=== PATIENT | female | born 1965 | race American Indian/Alaskan Native ===

== ENCOUNTER 2018-04-23 08:03 | Outpatient (CLI) | payer OTHER ==
--- NOTE | 2018-04-23 12:32 | Nuclear Medicine Report ---
NUCLEAR MEDICINE HEPATOBILIARY SCAN: 04/23/18 08:14:00 CLINICAL: Right upper quadrant abdominal pain, nausea and vomiting for 6+ months. TECHNIQUE: 5.0mCi technetium 99m Choletec was injected intravenously. Serial images were obtained up to 2 hours. FINDINGS: Normal activity in the liver, bile ducts and small bowel but no gallbladder activity identified at 2 hours. IMPRESSION: Nonvisualization of the gallbladder at 2 hours is consistent with acute cholecystitis.
== END 2018-04-23 08:04 | disposition home or self-care (01) ==
LOC: NM 08:03
PROVIDERS: ATTEND Student in an Organized Health Care Education/Training Program
DX: K57.30 Diverticulosis of large intestine without perforation or abscess without bleeding (principal); K57.32 Diverticulitis of large intestine without perforation or abscess without bleeding; R11.2 Nausea with vomiting, unspecified; R50.9 Fever, unspecified
CPT/HCPCS: 78226; A9537

== ENCOUNTER 2018-04-24 18:04 | Inpatient (IN) | payer OTHER ==
--- NOTE | 2018-04-24 18:29 | Emergency Department Report ---
Blank Doc - Documentation Documentation: 52 y o female presents with gall bladder disease, was sent here by [facility] or admit to surgery for gb removal. HIDA scan yesterday Gen Surg: Dr Valenzuela sent by Dr Oziel Christina reports abd pain, n, eat once a day This initial assessment diagnostic orders/clinical plan/treatment (s) is/Are subject change based on patient's health status, clinical progression and re- assessment by fellow clinical providers in the ED. Further treatment and work-up at subsequent clinical providers discretion. Patient/guardians urged not to elope from their condition may be serious if not clinically assessed and managed. Initial order include: cbc, cmp
--- NOTE | 2018-04-24 19:01 | Emergency Department Report ---
ED Abdominal Pain HPI - General Chief Complaint: Abdominal Pain Stated Complaint: GALL BLADDER Time Seen by Provider: 04/24/18 18:24 Source: patient Mode of arrival: Ambulatory Limitations: No Limitations - History of Present Illness Initial Comments: She is a 52-year-old female that presents to the emergency room for abdominal pain, nausea vomiting, and fever. Patient states that her abdominal pain is originally in her right upper quadrant with sweats she had a HIDA scan for trauma HIDA scan shows a nonfunctioning gallbladder. Patient is also com plaining of left lower quadrant pain. Patient states the pain is 10 out of 10. Patient states the pain is better with rest and worse with eating or movement. Patient states she been nauseated for 3 days. Patient states her fever has been gone for 3 days and patient has been taking Tylenol to relieve the pain in the fever and pain. Patient states she was sent here by her primary care for [facility] for admission and gallbladder removal. MD Complaint: abdominal pain -: Sudden Location: RUQ, LLQ Radiation: none Migration to: no migration Severity: severe Severity scale (0 -10): 10 Quality: stabbing Consistency: constant Improves With: rest Worsens With: eating, movement Associated Symptoms: nausea, vomiting, fever. denies: chills, constipation, dysuria, hematemesis, hematochezia, melena, hematuria, anorexia, syncope - Related Data Home Medications Medication Instructions Recorded Confirmed Last Taken Levothyroxine [Synthroid] 112 mcg PO QAM 04/24/18 04/24/18 Unknown NIFEdipine [Nifedipine ER] 60 mg PO DAILY 04/24/18 04/24/18 Unknown Allergies Allergy/AdvReac Type Severity Reaction Status Date / Time iodine Allergy Swelling Verified 04/25/18 00:31 latex Allergy Swelling Verified 04/25/18 00:31 Penicillins Allergy Hives Verified 04/25/18 00:32 venom-honey bee Allergy Swelling Unverified 08/03/15 13:16 [bee venom (honey bee)] ED Review of Systems ROS: Stated complaint: GALL BLADDER Other details as noted in HPI Constitutional: fever. denies: chills Eyes: denies: eye pain, eye discharge, vision change ENT: denies: ear pain, throat pain Respiratory: denies: cough, shortness of breath, wheezing Cardiovascular: denies: chest pain, palpitations Endocrine: no symptoms reported Gastrointestinal: abdominal pain, nausea, vomiting. denies: diarrhea Genitourinary: denies: urgency, dysuria, discharge Musculoskeletal: denies: back pain, joint swelling, arthralgia Skin: denies: rash, lesions Neurological: denies: headache, weakness, paresthesias Psychiatric: denies: anxiety, depression Hematological/Lymphatic: denies: easy bleeding, easy bruising ED Past Medical Hx - Past Medical History Previous Medical History?: Yes Hx Hypertension: Yes Additional medical history: thyroid - Surgical History Past Surgical History?: Yes Additional Surgical History: hysterectomy, tub removal, thyriod surgery - Family History Family history: no significant - Social History Smoking Status: Never Smoker Substance Use Type: None - Medications Home Medications: Home Medications Medication Instructions Recorded Confirmed Last Taken Type Levothyroxine [Synthroid] 112 mcg PO QAM 04/24/18 04/24/18 Unknown History NIFEdipine [Nifedipine ER] 60 mg PO DAILY 04/24/18 04/24/18 Unknown History ED Physical Exam - General Limitations: No Limitations General appearance: alert, in no apparent distress - Head Head exam: Present: atraumatic, normocephalic - Eye Eye exam: Present: normal appearance - ENT ENT exam: Present: mucous membranes moist - Neck Neck exam: Present: normal inspection - Respiratory Respiratory exam: Present: normal lung sounds bilaterally. Absent: respiratory distress - Cardiovascular Cardiovascular Exam: Present: regular rate, normal rhythm. Absent: systolic murmur, diastolic murmur, rubs, gallop - GI/Abdominal GI/Abdominal exam: Present: soft, tenderness (right upper quadrant tenderness and left lower quadrant tenderness), normal bowel sounds. Absent: guarding, rebound - Rectal Rectal exam: Present: deferred - Extremities Exam Extremities exam: Present: normal inspection - Back Exam Back exam: Present: normal inspection - Neurological Exam Neurological exam: Present: alert, oriented X3 - Psychiatric Psychiatric exam: Present: normal affect, normal mood - Skin Skin exam: Present: warm, dry, intact, normal color. Absent: rash ED Course Vital Signs 04/24/18 04/24/18 04/24/18 14:41 14:46 15:00 Temperature Pulse Rate Respiratory Rate Blood Pressure 124/84 124/84 124/84 Blood Pressure [Right] O2 Sat by Pulse 95 96 91 Oximetry 04/24/18 04/24/18 04/24/18 15:16 18:29 18:42 Temperature 97.6 F Pulse Rate 92 H Respiratory 18 Rate Blood Pressure 130/82 154/110 130/82 Blood Pressure [Right] O2 Sat by Pulse 94 98 100 Oximetry 04/24/18 04/24/18 04/24/18 18:45 18:54 19:00 Temperature 98.9 F Pulse Rate 87 98 H 84 Respiratory 12 14 22 Rate Blood Pressure 150/102 151/106 Blood Pressure 111/67 [Right] O2 Sat by Pulse 100 100 100 Oximetry 04/24/18 04/24/18 04/24/18 19:22 20:00 21:00 Temperature 98.2 F Pulse Rate 80 75 84 Respiratory 15 14 15 Rate Blood Pressure 140/101 138/89 Blood Pressure 130/96 [Right] O2 Sat by Pulse 98 98 99 Oximetry 04/24/18 04/25/18 22:00 00:05 Temperature Pulse Rate 80 87 Respiratory 14 19 Rate Blood Pressure 149/97 Blood Pressure 149/87 [Right] O2 Sat by Pulse 99 99 Oximetry - Reevaluation(s) Reevaluation #1: Patient states she doesn't want anything for pain and would just like something for nausea. She is allergic to IV dye 04/24/18 18:24 Discussed all results with patient. Patient agrees to plan of care and admission. Patient was admitted to the hospitalist service for further treatment. 04/24/18 22:25 - Consultations Consultation #1: General surgery consulted. Dr. Sierra wants patient admitted to internal medicine service, nothing by mouth, and ultrasound done as well as patient given Levaquin IV. 04/24/18 22:24 Consultation #2: Hospitalist consulted for admission. Hospitalist to assume care of the patient and admit patient 04/24/18 22:31 ED Medical Decision Making - Lab Data Result diagrams: 04/24/18 18:52 04/24/18 18:52 - Radiology Data Radiology results: report reviewed PROCEDURE: CT ABDOMEN PELVIS WO CON TECHNIQUE: Computerized axial tomography of the abdomen and pelvis was performed without intravenous contrast. This study is performed without intravascular contrast material and its sensitivity for abdominal and pelvic pathology, including neoplasms, inflammation, abscess, free fluid, thrombosis, arterial dissection and infarction, is reduced compared with a contrast enhanced study. CT DOSE LENGTH PRODUCT: mGycm HISTORY: abd pain COMPARISONS: None . FINDINGS: Liver, spleen, pancreas and adrenal glands are within normal limits. Bilateral kidneys demonstrate normal density without calculi or hydronephrosis. Urinary bladder is partially filled with normal outlines. Aorta is of normal caliber. There is no free fluid or free air. Gallbladder is contracted. Small bowel loops are within normal limits. Moderate degree of residual stool is noted. Appendix is normal. Vertebral height is normal IMPRESSION: No acute intra-abdominal or pelvic pathology is visualized on this noncontrast study. Moderate degree of residual stool. NUCLEAR MEDICINE HEPATOBILIARY SCAN: 04/23/18 08:14:00 CLINICAL: Right upper quadrant abdominal pain, nausea and vomiting for 6+ months. TECHNIQUE: 5.0mCi technetium 99m Choletec was injected intravenously. Serial images were obtained up to 2 hours. FINDINGS: Normal activity in the liver, bile ducts and small bowel but no gallbladder activity identified at 2 hours. IMPRESSION: Nonvisualization of the gallbladder at 2 hours is consistent with acute cholecystitis. - Medical Decision Making Patient is a 52-year-old female presents emergency room with complaints of abdominal pain in nausea vomiting fever. She had a HIDA scan as an outpatient was consistent with acute cholecystitis. Patient sent here by her GI and primary care for further evaluation and treatment possible admission for gallbladder removal. Patient's labs are unremarkable. General surgery consult and further management of the gallbladder pain. Patient to be admitted to the hospitalist service. Neurosurgery recommendations were received and ordered. Patient will have an ultrasound prior to admission. Patient given pain medications and antiemetics in the ER. Also remain nothing by mouth and given fluids. - Differential Diagnosis acute cholecystitis. abd pain. Gallbladder dysfunction. n/v. fever. Critical Care Time: Yes Critical care attestation.: If time is entered above; I have spent that time in minutes in the direct care of this critically ill patient, excluding procedure time. Critical Care Time: 45 minutes ED Disposition Clinical Impression: Acute cholecystitis Abdominal pain Qualifiers: Abdominal location: generalized Qualified Code(s): R10.84 - Generalized abdominal pain Fever Qualifiers: Fever type: unspecified Qualified Code(s): R50.9 - Fever, unspecified Nausea & vomiting Qualifiers: Vomiting type: unspecified Vomiting Intractability: intractable Qualified Code(s): R11.2 - Nausea with vomiting, unspecified Disposition: 09 OP ADMIT IP TO THIS HOSP Is pt being admited?: Yes Does the pt Need Aspirin: No Condition: Fair Time of Disposition: 22:26
[2018-04-24] MEDS ORDERED: ZOFRAN IV ONE (19:05)
[2018-04-24] MEDS ORDERED: NACL 0.9% 1000 ML 1,000 ML IV ONE ×2 (19:05→22:26)
[2018-04-24 19:12] LABS: Basophils # (Auto) 0.1 K/mm3 (0.0-0.1); Eosinophils # (Auto) 0.1 K/mm3 (0.0-0.4); Hematocrit 38.3 % (30.3-42.9); Hemoglobin 13.1 gm/dl (10.1-14.3); Lymphocytes # (Auto) 3.6 K/mm3 (1.2-5.4); Lymphocytes % (Auto) 49.9 % (13.4-35.0); Mean Corpuscular HGB Conc 34 % (30-34); Mean Corpuscular Volume 90 fl (79-97); Monocytes # (Auto) 0.7 K/mm3 (0.0-0.8); Monocytes % (Auto) 9.7 % (0.0-7.3); Platelet Count 341 K/mm3 (140-440); Red Blood Count 4.28 M/mm3 (3.65-5.03); Red Cell Distribution Width 13.5 % (13.2-15.2)
[2018-04-24 19:34] LABS: Albumin 2.3 g/dL (3.9-5); BUN/Creatinine Ratio 35; Blood Urea Nitrogen 7 mg/dL (7-17); Hemolysis Index 32
[2018-04-24 20:22] LABS: Calcium 9.1 mg/dL (8.4-10.2)
[2018-04-24 20:23] LABS: Alanine Aminotransferase 19 units/L (7-56)
--- NOTE | 2018-04-24 21:47 | Cat Scan Report ---
PROCEDURE: CT ABDOMEN PELVIS WO CON TECHNIQUE: Computerized axial tomography of the abdomen and pelvis was performed without intravenous contrast. This study is performed without intravascular contrast material and its sensitivity for ab dominal and pelvic pathology, including neoplasms, inflammation, abscess, free fluid, thrombosis, art erial dissection and infarction, is reduced compared with a contrast enhanced study. CT DOSE LENGTH PRODUCT: mGycm HISTORY: abd pain COMPARISONS: None . FINDINGS: Liver, spleen, pancreas and adrenal glands are within normal limits. Bilateral kidneys demonstrate no rmal density without calculi or hydronephrosis. Urinary bladder is partially filled with normal outli yaritza. Aorta is of normal caliber. There is no free fluid or free air. Gallbladder is contracted. Small bowel loops are within normal limits. Moderate degree of residual stool is noted. Appendix is normal . Vertebral height is normal IMPRESSION: No acute intra-abdominal or pelvic pathology is visualized on this noncontrast study. Moderate degree of residual stool. This document is electronically signed by Gus Farias MD., April 24 2018 09:45:52 PM ET
[2018-04-24] MEDS ORDERED: LEVAQUIN 750MG/150ML 750 MG/150 ML BAG IV ONE (22:26)
[2018-04-24] MEDS ORDERED: SODIUM CHLORIDE FLUSH SYRINGE 10 ML IV PRN (23:22)
[2018-04-24] MEDS ORDERED: APRESOLINE IV PRN (23:24)
--- NOTE | 2018-04-24 23:24 | History and Physical Report ---
History of Present Illness Date of examination: 04/24/18 History of present illness: 52-year-old woman with history of hypertension, hypothyroidism emergency room with complaints of abdominal pain since October. The pain right upper quadrant, sharp, constant, intensity 8/10, no radiation, associated with nausea and vomiting. She was admitted at [facility] and was diagnosed with diverticulitis, status post colonoscopy on April 14 which was negative for diverticulosis. Her CRP remain elevated, she had a scan was obtained yesterday which was concerning for cholecystitis. Her GI doctor sent her to the emergency room today for further evaluation, patient states she had a fever today Review of systems Constitutional: no weight loss, chills, fever Ears, eyes, nose, mouth and throat: no nasal congestion, no nasal discharge, no sinus pressure, no vision change, no red eye. Neck: No neck pain or rigidity. Cardiovascular: no palpitations, chest pain Respiratory: no cough, shortness of breath Gastrointestinal: no hematochezia, +abdominal pain Genitourinary : no frequency , no hematuria Musculoskeletal: no joint swelling or muscle ache Integumentary: no rash, no pruritis Neurological: no parathesias, no focal weakness Endocrine: no cold or heat intolerance, no polyuria or polydipsia Hematologic/Lymphatic: no easy bruising, no easy bleeding, no gland swelling Allergic/Immunologic: no urticaria, no angioedema. PAST MEDICAL HISTORY: None PAST SURGICAL HISTORY: Thyroidectomy, hysterectomy, tubal removal SOCIAL HISTORY: + alcohol, no tobacco, drugs FAMILY HISTORY: Hypertension Medications and Allergies Allergies Allergy/AdvReac Type Severity Reaction Status Date / Time iodine Allergy Swelling Verified 04/25/18 00:31 latex Allergy Swelling Verified 04/25/18 00:31 Penicillins Allergy Hives Verified 04/25/18 00:32 venom-honey bee AdvReac Severe Shortness Verified 04/25/18 15:58 [bee venom (honey bee)] of Breath Home Medications Medication Instructions Recorded Confirmed Last Taken Type Levothyroxine [Synthroid] 112 mcg PO QAM 04/24/18 04/24/18 Unknown History NIFEdipine [Nifedipine ER] 60 mg PO DAILY 04/24/18 04/24/18 Unknown History SUMAtriptan SUCCINATE [Imitrex] 100 mg PO Q2H 04/26/18 04/26/18 04/23/18 15:00 History 100 HYDROcodone/APAP 7.5-325 [[place]] 7.5 mg PO Q4HR #7 oral.liqd 04/28/18 Unknown Rx Naproxen Sodium [Aleve TAB] 220 mg PO Q8H PRN #20 tablet 04/28/18 Unknown Rx Active Meds: Active Medications Acetaminophen (Tylenol) 650 mg PO Q4H PRN PRN Reason: Pain MILD(1-3)/Fever >100.5/GODOY Enoxaparin Sodium (Lovenox) 30 mg SUB-Q QDAY REYMUNDO Hydralazine HCl (Apresoline) 5 mg IV Q6H PRN PRN Reason: Hypertension Levofloxacin/Dextrose (Levaquin 750mg/150ml) 750 mg in 150 mls @ 100 mls/hr IV ONCE ONE Stop: 04/24/18 23:55 Last Admin: 04/24/18 22:47 Dose: 100 mls/hr Documented by: Sodium Chloride (Nacl 0.9% 1000 Ml) 1,000 mls @ 999 mls/hr IV BOLUS ONE Stop: 04/24/18 23:26 Last Admin: 04/24/18 22:47 Dose: 999 mls/hr Documented by: Sodium Chloride (Nacl 0.45% 1000 Ml) 1,000 mls @ 75 mls/hr IV DIRECT REYMUNDO Morphine Sulfate (Morphine) 2 mg IV Q4H PRN PRN Reason: Pain, Moderate (4-6) Ondansetron HCl (Zofran) 4 mg IV Q4H PRN PRN Reason: Nausea And Vomiting Sodium Chloride (Sodium Chloride Flush Syringe 10 Ml) 10 ml IV BID REYMUNDO Sodium Chloride (Sodium Chloride Flush Syringe 10 Ml) 10 ml IV PRN PRN PRN Reason: LINE FLUSH Exam - Physical Exam Narrative exam: General Apperance: The patient lying in bed, breathing comfortable HEENT: Normocephalic, atraumatic. Pupils equally round and reactive to light, EOMI, no sclericterus or JVD or thyromegaly or nodule. , no carotid bruit, mucous membranes moist, no exudate or erythema Heart: S1-S2, regular is rhythm Lungs: Clear to auscultation bilaterally, breathing comfortable Abdomen: Positive bowel sounds, soft, nontender, nondistended, no organomegaly Extremities: No edema cyanosis clubbing Skin: no rash, nodule, warm and dry Neuro: cranial nerves 2-12 intact, speech is fluent, motor/sensory intact - Constitutional Vitals: Temp Pulse Resp BP Pulse Ox 98.2 F 80 14 149/97 99 04/24/18 19:22 04/24/18 22:00 04/24/18 22:00 04/24/18 22:00 04/24/18 22:00 Results - Labs CBC & Chem 7: 04/28/18 04:29 04/28/18 04:29 Labs: Abnormal lab results 04/24/18 04/24/18 Range/Units 18:52 18:52 Lymph % (Auto) 49.9 H (13.4-35.0) % [place] % (Auto) 9.7 H (0.0-7.3) % Seg Neutrophils % 38.4 L (40.0-70.0) % Sodium 136 L (137-145) mmol/L Carbon Dioxide 14 L (22-30) mmol/L Creatinine < 0.2 L (0.7-1.2) mg/dL Albumin 2.3 L (3.9-5) g/dL - Imaging and Cardiology US - abdomen: pending Assessment and Plan Assessment Acute cholecystitis Hypertension Hypothyroidism Plan Admit to medicine Placed on bowel rest, IV fluid, consult surgery IV fluids, DVT prophylaxis
--- NOTE | 2018-04-24 23:49 | Ultrasound Report ---
PROCEDURE: US ABDOMEN LIMITED TECHNIQUE: Real-time sonography was performed of the with image documentation. HISTORY: ruq COMPARISONS: None . FINDINGS: Liver, right kidney and visualized pancreatic head and body demonstrate normal echotexture. Gallbladd er is partially distended with normal outlines and normal wall thickness without calculi or perichole cystic collections. Common duct is 3 mm in caliber.. IMPRESSION: Unremarkable study. This document is electronically signed by Gus Farias MD., April 24 2018 11:47:36 PM ET
[2018-04-24 23:50] LABS: Bacteria,Urine 1+ /HPF (Negative); Bilirubin,Urine NEG (Negative); Blood,Urine NEG (Negative); Color,Urine Yellow (Yellow); Hyaline Casts,Urine 4 /LPF; Mucus,Urine FEW /HPF; Protein,Urine <15 mg/dL mg/dL (Negative); Urobilinogen,Urine < 2.0 mg/dL (<2.0)
[2018-04-25] MEDS ORDERED: MORPHINE ONE (00:41)
[2018-04-25] MEDS ORDERED: ZOFRAN ONE (00:41)
[2018-04-25] MEDS: MORPHINE IV PRN ×4 (00:45→21:45)
[2018-04-25] MEDS: ZOFRAN IV PRN ×3 (00:46→21:47)
[2018-04-25] MEDS: NACL 0.45% 1000 ML 1,000 ML IV SCH ×2 (01:23→13:17)
[2018-04-25 05:11] LABS: Basophils % (Auto) 0.7 % (0.0-1.8); Eosinophils # (Auto) 0.1 K/mm3 (0.0-0.4); Eosinophils % (Auto) 1.2 % (0.0-4.3); Hematocrit 34.4 % (30.3-42.9); Hemoglobin 11.9 gm/dl (10.1-14.3); Lymphocytes # (Auto) 2.6 K/mm3 (1.2-5.4); Lymphocytes % (Auto) 50.8 % (13.4-35.0); Mean Corpuscular HGB Conc 35 % (30-34); Mean Corpuscular Volume 88 fl (79-97); Monocytes # (Auto) 0.4 K/mm3 (0.0-0.8); Monocytes % (Auto) 7.6 % (0.0-7.3); Platelet Count 294 K/mm3 (140-440); Red Blood Count 3.89 M/mm3 (3.65-5.03); Red Cell Distribution Width 13.5 % (13.2-15.2)
[2018-04-25 05:38] LABS: Alanine Aminotransferase 12 units/L (7-56); Albumin 3.5 g/dL (3.9-5); BUN/Creatinine Ratio 9; Blood Urea Nitrogen 6 mg/dL (7-17); Calcium 8.6 mg/dL (8.4-10.2); Hemolysis Index 6
[2018-04-25] MEDS: SYNTHROID PO SCH (06:15)
--- NOTE | 2018-04-25 07:37 | Progress Note ---
Assessment and Plan Assessment and plan: Patient is a 52-year-old woman with a history of hypertension and hypothyroidism who presented to [facility] ED emergency room with complaints of abdominal pain since October. The pain right upper quadrant, sharp, constant, intensity 8/10, no radiation, associated with nausea and vomiting. She was admitted at [facility] and was diagnosed with diverticulitis, status post colonoscopy on April 14 which was negative for diverticulosis. Her CRP remain elevated, I had a scan was obtained yesterday which was concerning for cholecystitis. Her GI doctor sent her to the emergency room today for further evaluation, patient states she had a fever today. * CT abd/pelvis without contrast: IMPRESSION: No acute intra-abdominal or pelvic pathology is visualized on this noncontrast study. Moderate degree of residual stool. 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 Follow-up on current diagnosis acute cholecystitis. Overnight uneventful. Patient denies any chest pain, shortness breath, nausea/vomiting or severe headaches. Imaging, nursing note, chart, labs and old chart reviewed. Discussed with patient. Hospitalist Physical - Physical exam Narrative exam: Gen: WDWN, NAD, Awake, Alert, Orientated HEENT: NCAT, EOMI, PERRL, OP Clear Neck: supple, no adenopathy, no thyromegaly, no JVD CVS/Heart: RRR, normal S1S2, pulses present bilaterally Chest/Lungs: CTA B, Symmetrical chest expansion, good air entry bilaterally GI/Abdomen: soft, tenderness, good bowel sounds, no guarding or rebound /Bladder: no suprapubic tenderness, no CVA or paraspinal tenderness Extermity/Skin: no c/c/e, no obvious rash MSK: FROM x 4 Neuro: CN 2-12 grossly intact, no new focal deficits Psych: calm - Constitutional Vitals: Temp Pulse Resp BP Pulse Ox 97.8 F 78 18 116/70 96 04/25/18 04:42 04/25/18 04:42 04/25/18 05:59 04/25/18 04:42 04/25/18 04:42 Results - Labs CBC & Chem 7: 04/25/18 04:32 04/25/18 Unknown Labs: Laboratory Last Values WBC 5.1 K/mm3 (4.5-11.0) 04/25/18 04:32 RBC 3.89 M/mm3 (3.65-5.03) 04/25/18 04:32 Hgb 11.9 gm/dl (10.1-14.3) 04/25/18 04:32 Hct 34.4 % (30.3-42.9) 04/25/18 04:32 MCV 88 fl (79-97) 04/25/18 04:32 MCH 31 pg (28-32) 04/25/18 04:32 MCHC 35 % (30-34) H 04/25/18 04:32 RDW 13.5 % (13.2-15.2) 04/25/18 04:32 Plt Count 294 K/mm3 (140-440) 04/25/18 04:32 Lymph % (Auto) 50.8 % (13.4-35.0) H 04/25/18 04:32 [place] % (Auto) 7.6 % (0.0-7.3) H 04/25/18 04:32 Eos % (Auto) 1.2 % (0.0-4.3) 04/25/18 04:32 Baso % (Auto) 0.7 % (0.0-1.8) 04/25/18 04:32 Lymph # 2.6 K/mm3 (1.2-5.4) 04/25/18 04:32 [place] # 0.4 K/mm3 (0.0-0.8) 04/25/18 04:32 Eos # 0.1 K/mm3 (0.0-0.4) 04/25/18 04:32 Baso # 0.0 K/mm3 (0.0-0.1) 04/25/18 04:32 Seg Neutrophils % 39.7 % (40.0-70.0) L 04/25/18 04:32 Seg Neutrophils # 2.0 K/mm3 (1.8-7.7) 04/25/18 04:32 Sodium 142 mmol/L (137-145) 04/25/18 Unknown Potassium 3.6 mmol/L (3.6-5.0) D 04/25/18 Unknown Chloride 103.7 mmol/L (98-107) 04/25/18 Unknown Carbon Dioxide 25 mmol/L (22-30) D 04/25/18 Unknown Anion Gap 17 mmol/L 04/25/18 Unknown BUN 6 mg/dL (7-17) L 04/25/18 Unknown Creatinine 0.7 mg/dL (0.7-1.2) D 04/25/18 Unknown Estimated GFR > 60 ml/min 04/25/18 Unknown BUN/Creatinine Ratio 9 % 04/25/18 Unknown Glucose 105 mg/dL (65-100) H 04/25/18 Unknown Calcium 8.6 mg/dL (8.4-10.2) 04/25/18 Unknown Total Bilirubin 0.40 mg/dL (0.1-1.2) 04/25/18 Unknown AST 14 units/L (5-40) 04/25/18 Unknown ALT 12 units/L (7-56) 04/25/18 Unknown Alkaline Phosphatase 92 units/L (35-129) 04/25/18 Unknown Total Protein 6.8 g/dL (6.3-8.2) 04/25/18 Unknown Albumin 3.5 g/dL (3.9-5) L 04/25/18 Unknown Albumin/Globulin Ratio 1.1 % 04/25/18 Unknown Urine Color Yellow (Yellow) 04/24/18 23:26 Urine Turbidity Clear (Clear) 04/24/18 23:26 Urine pH 5.0 (5.0-7.0) 04/24/18 23:26 Ur Specific [place] 1.019 (1.003-1.030) 04/24/18 23:26 Urine Protein <15 mg/dl mg/dL (Negative) 04/24/18 23:26 Urine Glucose (UA) Neg mg/dL (Negative) 04/24/18 23:26 Urine Ketones Neg mg/dL (Negative) 04/24/18 23:26 Urine Blood Neg (Negative) 04/24/18 23:26 Urine Nitrite Neg (Negative) 04/24/18 23:26 Urine Bilirubin Neg (Negative) 04/24/18 23:26 Urine Urobilinogen < 2.0 mg/dL (<2.0) 04/24/18 23:26 Ur Leukocyte Esterase Neg (Negative) 04/24/18 23:26 Urine WBC (Auto) 4.0 /HPF (0.0-6.0) 04/24/18 23:26 Urine RBC (Auto) 1.0 /HPF (0.0-6.0) 04/24/18 23:26 U Epithel Cells (Auto) 2.0 /HPF (0-13.0) 04/24/18 23:26 Urine Bacteria (Auto) 1+ /HPF (Negative) 04/24/18 23:26 Hyaline Casts 4 /LPF 04/24/18 23:26 Urine Mucus Few /HPF 04/24/18 23:26
[2018-04-25] MEDS: PROCARDIA XL PO SCH (08:59)
[2018-04-25] MEDS ORDERED: NON-FORMULARY (Nifedipine [Nifedipine Er] 60 MG) PO SCH (10:00)
[2018-04-25] MEDS ORDERED: LOVENOX SUB-Q SCH (10:00)
[2018-04-25] MEDS: LOVENOX SUB-Q SCH (10:01)
[2018-04-25] MEDS: SODIUM CHLORIDE FLUSH SYRINGE 10 ML IV SCH ×2 (10:02→22:00)
--- NOTE | 2018-04-25 12:32 | Progress Note ---
Assessment and Plan Full consult dictated 52 y/o female c/o RUQ abd pain. CT & GB US neg. but HIDA done as out pt non vis - consistent with acute GB Abd soft, minimal RUQ tenderness at present but pt recently medicated will review films with radiologist review case with Hospital and pt's GI group (just consulted) rec keep NPO Empiric Levaquin will follow Date of examination: 04/24/18 History of present illness: 52-year-old woman with history of hypertension, hypothyroidism emergency room w ith complaints of abdominal pain since October. The pain right upper quadrant, sharp, constant, intensity 8/10, no radiation, associated with nausea and vomiting. She was admitted at [facility] and was diagnosed with diverticulitis, status post colonoscopy on April 14 which was negative for diverticulosis. Her CRP remain elevated, I had a scan was obtained yesterday which was concerning for cholecystitis. Her GI doctor sent her to the emergency room today for further evaluation, patient states she had a fever today Review of systems Constitutional: no weight loss, chills, fever Ears, eyes, nose, mouth and throat: no nasal congestion, no nasal discharge, no sinus pressure, no vision change, no red eye. Neck: No neck pain or rigidity. Cardiovascular: no palpitations, chest pain Respiratory: no cough, shortness of breath Gastrointestinal: no hematochezia, +abdominal pain Genitourinary : no frequency , no hematuria Musculoskeletal: no joint swelling or muscle ache Integumentary: no rash, no pruritis Neurological: no parathesias, no focal weakness Endocrine: no cold or heat intolerance, no polyuria or polydipsia Hematologic/Lymphatic: no easy bruising, no easy bleeding, no gland swelling Allergic/Immunologic: no urticaria, no angioedema. PAST MEDICAL HISTORY: None PAST SURGICAL HISTORY: Thyroidectomy, hysterectomy, tubal removal Selected Entries 04/25/18 04/25/18 07:09 10:07 Temperature 97.7 F Pulse Rate 79 Respiratory 19 20 Rate Blood Pressure 124/73 [Right] Laboratory Tests 04/25/18 04/25/18 04:32 Unknown WBC 5.1 Hgb 11.9 Hct 34.4 Sodium 142 Potassium 3.6 D Chloride 103.7 Carbon Dioxide 25 D Anion Gap 17 BUN 6 L Glucose 105 H Total Bilirubin 0.40 AST 14 ALT 12 Alkaline Phosphatase 92 Objective Vital Signs - 12hr 04/25/18 04/25/18 04/25/18 00:41 01:08 04:42 Temperature 97.8 F 97.8 F Pulse Rate 81 76 78 Respiratory 12 20 20 Rate Blood Pressure 141/106 155/92 116/70 Blood Pressure [Right] O2 Sat by Pulse 100 95 96 Oximetry 04/25/18 04/25/18 04/25/18 05:59 07:09 10:07 Temperature 97.7 F Pulse Rate 79 Respiratory 18 19 20 Rate Blood Pressure Blood Pressure 124/73 [Right] O2 Sat by Pulse 98 Oximetry - Labs 04/25/18 04:32 04/25/18 Unknown Diabetes panel 04/24/18 04/24/18 04/24/18 Range/Units 18:52 18:52 23:26 WBC 7.2 (4.5-11.0) K/mm3 RBC 4.28 (3.65-5.03) M/mm3 Hgb 13.1 (10.1-14.3) gm/dl Hct 38.3 (30.3-42.9) % MCV 90 (79-97) fl MCH 31 (28-32) pg MCHC 34 (30-34) % RDW 13.5 (13.2-15.2) % Plt Count 341 (140-440) K/mm3 Lymph % (Auto) 49.9 H (13.4-35.0) % [place] % (Auto) 9.7 H (0.0-7.3) % Eos % (Auto) 1.0 (0.0-4.3) % Baso % (Auto) 1.0 (0.0-1.8) % Lymph # 3.6 (1.2-5.4) K/mm3 [place] # 0.7 (0.0-0.8) K/mm3 Eos # 0.1 (0.0-0.4) K/mm3 Baso # 0.1 (0.0-0.1) K/mm3 Seg Neutrophils % 38.4 L (40.0-70.0) % Seg Neutrophils # 2.8 (1.8-7.7) K/mm3 Sodium 136 L (137-145) mmol/L Potassium 4.6 (3.6-5.0) mmol/L Chloride 98.5 (98-107) mmol/L Carbon Dioxide 14 L (22-30) mmol/L Anion Gap 28 mmol/L BUN 7 (7-17) mg/dL Creatinine < 0.2 L (0.7-1.2) mg/dL Estimated GFR > 60 ml/min BUN/Creatinine Ratio 35 % Glucose 76 (65-100) mg/dL Calcium 9.1 (8.4-10.2) mg/dL Total Bilirubin < 0.20 (0.1-1.2) mg/dL AST 34 (5-40) units/L ALT 19 (7-56) units/L Alkaline Phosphatase 102 (35-129) units/L Total Protein 7.9 (6.3-8.2) g/dL Albumin 2.3 L (3.9-5) g/dL Albumin/Globulin Ratio 0.4 % Urine Color Yellow (Yellow) Urine Turbidity Clear (Clear) Urine pH 5.0 (5.0-7.0) Ur Specific [place] 1.019 (1.003-1.030) Urine Protein <15 mg/dl (Negative) mg/dL Urine Glucose (UA) Neg (Negative) mg/dL Urine Ketones Neg (Negative) mg/dL Urine Blood Neg (Negative) Urine Nitrite Neg (Negative) Urine Bilirubin Neg (Negative) Urine Urobilinogen < 2.0 (<2.0) mg/dL Ur Leukocyte Esterase Neg (Negative) Urine WBC (Auto) 4.0 (0.0-6.0) /HPF Urine RBC (Auto) 1.0 (0.0-6.0) /HPF U Epithel Cells (Auto) 2.0 (0-13.0) /HPF Urine Bacteria (Auto) 1+ (Negative) /HPF Hyaline Casts 4 /LPF Urine Mucus Few /HPF 04/25/18 04/25/18 Range/Units 04:32 Unknown WBC (4.5-11.0) K/mm3 RBC 3.89 (3.65-5.03) M/mm3 Hgb (10.1-14.3) gm/dl Hct (30.3-42.9) % MCV 88 (79-97) fl MCH 31 (28-32) pg MCHC 35 H (30-34) % RDW 13.5 (13.2-15.2) % Plt Count 294 (140-440) K/mm3 Lymph % (Auto) 50.8 H (13.4-35.0) % [place] % (Auto) 7.6 H (0.0-7.3) % Eos % (Auto) 1.2 (0.0-4.3) % Baso % (Auto) 0.7 (0.0-1.8) % Lymph # 2.6 (1.2-5.4) K/mm3 [place] # 0.4 (0.0-0.8) K/mm3 Eos # 0.1 (0.0-0.4) K/mm3 Baso # 0.0 (0.0-0.1) K/mm3 Seg Neutrophils % 39.7 L (40.0-70.0) % Seg Neutrophils # 2.0 (1.8-7.7) K/mm3 Sodium 142 (137-145) mmol/L Potassium 3.6 D (3.6-5.0) mmol/L Chloride 103.7 (98-107) mmol/L Carbon Dioxide 25 D (22-30) mmol/L Anion Gap mmol/L BUN 6 L (7-17) mg/dL Creatinine 0.7 D (0.7-1.2) mg/dL Estimated GFR > 60 ml/min BUN/Creatinine Ratio 9 % Glucose 105 H (65-100) mg/dL Calcium 8.6 (8.4-10.2) mg/dL Total Bilirubin (0.1-1.2) mg/dL AST 14 (5-40) units/L ALT 12 (7-56) units/L Alkaline Phosphatase 92 (35-129) units/L Total Protein 6.8 (6.3-8.2) g/dL Albumin 3.5 L (3.9-5) g/dL Albumin/Globulin Ratio 1.1 % Urine Color (Yellow) Urine Turbidity (Clear) Urine pH (5.0-7.0) Ur Specific [place] (1.003-1.030) Urine Protein (Negative) mg/dL Urine Glucose (UA) (Negative) mg/dL Urine Ketones (Negative) mg/dL Urine Blood (Negative) Urine Nitrite (Negative) Urine Bilirubin (Negative) Urine Urobilinogen (<2.0) mg/dL Ur Leukocyte Esterase (Negative) Urine WBC (Auto) (0.0-6.0) /HPF Urine RBC (Auto) (0.0-6.0) /HPF U Epithel Cells (Auto) (0-13.0) /HPF Urine Bacteria (Auto) (Negative) /HPF Hyaline Casts /LPF Urine Mucus /HPF Calcium panel 04/24/18 04/25/18 Range/Units 18:52 Unknown Calcium 9.1 8.6 (8.4-10.2) mg/dL Albumin 2.3 L 3.5 L (3.9-5) g/dL Pituitary panel 04/24/18 04/25/18 Range/Units 18:52 Unknown Sodium 136 L 142 (137-145) mmol/L Potassium 4.6 3.6 D (3.6-5.0) mmol/L Chloride 98.5 103.7 (98-107) mmol/L Carbon Dioxide 14 L 25 D (22-30) mmol/L BUN 7 6 L (7-17) mg/dL Creatinine < 0.2 L 0.7 D (0.7-1.2) mg/dL Glucose 76 105 H (65-100) mg/dL Calcium 9.1 8.6 (8.4-10.2) mg/dL Adrenal panel 04/24/18 04/25/18 Range/Units 18:52 Unknown Sodium 136 L 142 (137-145) mmol/L Potassium 4.6 3.6 D (3.6-5.0) mmol/L Chloride 98.5 103.7 (98-107) mmol/L Carbon Dioxide 14 L 25 D (22-30) mmol/L BUN 7 6 L (7-17) mg/dL Creatinine < 0.2 L 0.7 D (0.7-1.2) mg/dL Glucose 76 105 H (65-100) mg/dL Calcium 9.1 8.6 (8.4-10.2) mg/dL Total Bilirubin < 0.20 0.40 (0.1-1.2) mg/dL AST 34 14 (5-40) units/L ALT 19 12 (7-56) units/L Alkaline Phosphatase 102 92 (35-129) units/L Total Protein 7.9 6.8 (6.3-8.2) g/dL Albumin 2.3 L 3.5 L (3.9-5) g/dL
[2018-04-25] MEDS: LEVAQUIN 500MG/100ML 500 MG/100 ML BAG IV SCH (13:07)
--- NOTE | 2018-04-25 23:34 | Consultation ---
REASON FOR CONSULTATION: Rule out acute cholecystitis. 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 Subsequent to this, the patient recently began experiencing epigastric and right upper quadrant abdominal pain accompanied by nausea and vomiting. Her GI group referred her for an outpatient HIDA scan, which showed a nonvisualized gallbladder consistent with acute cholecystitis. They subsequently referred her to the ER and she was subsequently admitted. PAST MEDICAL HISTORY: Pertinent for hypertension, also past history of hyperthyroidism, but since has had a thyroidectomy and now currently takes Synthroid. Also, history of hypertension. PAST SURGICAL HISTORY: Status post complete hysterectomy, also previous surgery for an ectopic. A thyroidectomy as previously mentioned. Had a surgery on her left great toe, which required a pin. ALLERGIES: ALLERGIC TO IODINE AND SHELLFISH. MEDICATIONS: Include Synthroid and a " FAMILY HISTORY: Hypertension, diabetes and heart disease. SOCIAL HISTORY: Denies any smoking, very occasional ethanol intake. PHYSICAL EXAMINATION: GENERAL: At this time reveals the patient to be awake, alert, cooperative, in no discomfort, in no acute distress. It is noted, however, that the patient recently has been medicated for pain, approximately an hour ago as per patient. VITAL SIGNS: Stable. She is afebrile with a temperature of 97.7, blood pressure is 124/73, pulse is 79, respirations 20. HEENT: Pupils are equal and reactive to light and accommodation. Sclerae is nonicteric. ABDOMEN: Examination of the abdomen at this time reveals to be soft and nontender. Very minimal right upper quadrant tenderness is noted, but again the patient recently has been medicated. LABORATORY DATA: Lab work at present includes a CBC, which shows a normal white count of 5.1, H and H is 11.9 and 34.4. Electrolytes were all essentially within normal limits. LFTs are also within normal limits including a total bilirubin of 0.4, AST of 14, ALT of 12, alkaline phosphatase of 92. RADIOLOGICAL DATA: The patient has undergone a CT scan of the abdomen yesterday, which essentially is read as no acute intra-abdominal or pelvic pathology and essentially within normal limits. A gallbladder ultrasound was then also performed yesterday whose impression reads an unremarkable study. Gallbladder was described as partially distended with normal outlines, normal wall thickness, without calculi or pericholecystic collections. Common bile duct is noted to be 3 mm in caliber. However, as previously mentioned, there is an old report here from 04/23/2018 of a HIDA scan, which is described as nonvisualization of the gallbladder at 2 hours and consistent with acute cholecystitis. ASSESSMENT AND PLAN: At this time is rule out acalculous cholecystitis? We really need to review this closely as the CTs, ultrasounds and lab work are all within normal limits. We will review films with radiologist. Unfortunately, the radiologist is not available now during the weekend. Also, we will consult patient's GI group so they can see her here in the hospital. We can also discuss the case with them. Currently, would recommend to keep the patient n.p.o., IV fluid hydration and empiric Levaquin. We will follow closely with you. Thank you very much for consultation. JOB# [id number] [place]/SUZANNA
[2018-04-26] MEDS: NACL 0.45% 1000 ML 1,000 ML IV SCH ×2 (03:00→15:58)
[2018-04-26] MEDS: SYNTHROID PO SCH ×2 (06:00→09:32)
[2018-04-26] MEDS: LOVENOX SUB-Q SCH (09:19)
[2018-04-26] MEDS: PROCARDIA XL PO SCH (09:19)
[2018-04-26] MEDS: LEVAQUIN 500MG/100ML 500 MG/100 ML BAG IV SCH (09:20)
[2018-04-26] MEDS: SODIUM CHLORIDE FLUSH SYRINGE 10 ML IV SCH ×2 (09:23→21:21)
--- NOTE | 2018-04-26 11:17 | Progress Note ---
Assessment and Plan Assessment and plan: Patient is a 52-year-old woman with a history of hypertension and hypothyroidism who presented to [facility] ED emergency room with complaints of abdominal pain since October. The pain right upper quadrant, sharp, constant, intensity 8/10, no radiation, associated with nausea and vomiting. She was admitted at [facility] and was diagnosed with diverticulitis, status post colonoscopy on April 14 which was negative for diverticulosis. Her CRP remain elevated, I had a scan was obtained yesterday which was concerning for cholecystitis. Her GI doctor sent her to the emergency room today for further evaluation, patient states she had a fever today. * CT abd/pelvis without contrast: IMPRESSION: No acute intra-abdominal or pelvic pathology is visualized on this noncontrast study. Moderate degree of residual stool. * US abd limited: Unremarkable study Acute cholecystitis suspected: Await GS evaluation, Placed on bowel rest, IV fluid, Hypertension; prn iv antihypertensive while npo Hypothyroidism; continue home med, follow up tsh Severe malnutrition, poa: treat the infection and then consult [employer] once diet starts History Interval history: Patient was seen and examined. Follow-up on current diagnosis acute cholecystitis. Overnight uneventful. Patient denies any chest pain, shortness breath, nausea/vomiting or severe headaches. Imaging, nursing note, chart, labs and old chart reviewed. Discussed with patient. Hospitalist Physical - Physical exam Narrative exam: Gen: WDWN, NAD, Awake, Alert, Orientated HEENT: NCAT, EOMI, PERRL, OP Clear Neck: supple, no adenopathy, no thyromegaly, no JVD CVS/Heart: RRR, normal S1S2, pulses present bilaterally Chest/Lungs: CTA B, Symmetrical chest expansion, good air entry bilaterally GI/Abdomen: soft, tenderness, good bowel sounds, no guarding or rebound /Bladder: no suprapubic tenderness, no CVA or paraspinal tenderness Extermity/Skin: no c/c/e, no obvious rash MSK: FROM x 4 Neuro: CN 2-12 grossly intact, no new focal deficits Psych: calm - Constitutional Vitals: Temp Pulse Resp BP Pulse Ox 97.8 F 69 18 156/78 99 04/26/18 07:12 04/26/18 07:12 04/26/18 07:12 04/26/18 07:12 04/26/18 07:12 Results - Labs CBC & Chem 7: 04/25/18 04:32 04/25/18 Unknown Labs: Laboratory Last Values WBC 5.1 K/mm3 (4.5-11.0) 04/25/18 04:32 RBC 3.89 M/mm3 (3.65-5.03) 04/25/18 04:32 Hgb 11.9 gm/dl (10.1-14.3) 04/25/18 04:32 Hct 34.4 % (30.3-42.9) 04/25/18 04:32 MCV 88 fl (79-97) 04/25/18 04:32 MCH 31 pg (28-32) 04/25/18 04:32 MCHC 35 % (30-34) H 04/25/18 04:32 RDW 13.5 % (13.2-15.2) 04/25/18 04:32 Plt Count 294 K/mm3 (140-440) 04/25/18 04:32 Lymph % (Auto) 50.8 % (13.4-35.0) H 04/25/18 04:32 [place] % (Auto) 7.6 % (0.0-7.3) H 04/25/18 04:32 Eos % (Auto) 1.2 % (0.0-4.3) 04/25/18 04:32 Baso % (Auto) 0.7 % (0.0-1.8) 04/25/18 04:32 Lymph # 2.6 K/mm3 (1.2-5.4) 04/25/18 04:32 [place] # 0.4 K/mm3 (0.0-0.8) 04/25/18 04:32 Eos # 0.1 K/mm3 (0.0-0.4) 04/25/18 04:32 Baso # 0.0 K/mm3 (0.0-0.1) 04/25/18 04:32 Seg Neutrophils % 39.7 % (40.0-70.0) L 04/25/18 04:32 Seg Neutrophils # 2.0 K/mm3 (1.8-7.7) 04/25/18 04:32 Sodium 142 mmol/L (137-145) 04/25/18 Unknown Potassium 3.6 mmol/L (3.6-5.0) D 04/25/18 Unknown Chloride 103.7 mmol/L (98-107) 04/25/18 Unknown Carbon Dioxide 25 mmol/L (22-30) D 04/25/18 Unknown Anion Gap 17 mmol/L 04/25/18 Unknown BUN 6 mg/dL (7-17) L 04/25/18 Unknown Creatinine 0.7 mg/dL (0.7-1.2) D 04/25/18 Unknown Estimated GFR > 60 ml/min 04/25/18 Unknown BUN/Creatinine Ratio 9 % 04/25/18 Unknown Glucose 105 mg/dL (65-100) H 04/25/18 Unknown Calcium 8.6 mg/dL (8.4-10.2) 04/25/18 Unknown Total Bilirubin 0.40 mg/dL (0.1-1.2) 04/25/18 Unknown AST 14 units/L (5-40) 04/25/18 Unknown ALT 12 units/L (7-56) 04/25/18 Unknown Alkaline Phosphatase 92 units/L (35-129) 04/25/18 Unknown Total Protein 6.8 g/dL (6.3-8.2) 04/25/18 Unknown Albumin 3.5 g/dL (3.9-5) L 04/25/18 Unknown Albumin/Globulin Ratio 1.1 % 04/25/18 Unknown Urine Color Yellow (Yellow) 04/24/18 23:26 Urine Turbidity Clear (Clear) 04/24/18 23:26 Urine pH 5.0 (5.0-7.0) 04/24/18 23:26 Ur Specific [place] 1.019 (1.003-1.030) 04/24/18 23:26 Urine Protein <15 mg/dl mg/dL (Negative) 04/24/18 23:26 Urine Glucose (UA) Neg mg/dL (Negative) 04/24/18 23:26 Urine Ketones Neg mg/dL (Negative) 04/24/18 23:26 Urine Blood Neg (Negative) 04/24/18 23:26 Urine Nitrite Neg (Negative) 04/24/18 23:26 Urine Bilirubin Neg (Negative) 04/24/18 23:26 Urine Urobilinogen < 2.0 mg/dL (<2.0) 04/24/18 23:26 Ur Leukocyte Esterase Neg (Negative) 04/24/18 23:26 Urine WBC (Auto) 4.0 /HPF (0.0-6.0) 04/24/18 23:26 Urine RBC (Auto) 1.0 /HPF (0.0-6.0) 04/24/18 23:26 U Epithel Cells (Auto) 2.0 /HPF (0-13.0) 04/24/18 23:26 Urine Bacteria (Auto) 1+ /HPF (Negative) 04/24/18 23:26 Hyaline Casts 4 /LPF 04/24/18 23:26 Urine Mucus Few /HPF 04/24/18 23:26
[2018-04-26] MEDS: ZOFRAN IV PRN (12:29)
--- NOTE | 2018-04-26 13:16 | Event Note ---
Date: 04/26/18 full consult to follow, in brief patient with persistent abd pain with neg GI eval to date, ordered HIDA which was abnormal (concerning for cholecystitis), therefore recommend cholecystectomy as most reasonable next step
--- NOTE | 2018-04-26 13:52 | Progress Note ---
Assessment and Plan Pt status quo. still c/o nausea and RUQ abd pain Abd soft. mild RUQ tenderness Discussed with GI concur with diagnosis of acalculous cholecystitis esme proceed with lap GB in am risks, indications and compl reviewed with pt. As well as possibility that surg may not completely relieve symptoms. pt understands and has signed her consent Selected Entries 04/26/18 12:00 Temperature 98.2 F Pulse Rate 79 Respiratory 20 Rate Blood Pressure 124/93 [Right] Laboratory Tests 04/25/18 Unknown Sodium 142 Potassium 3.6 D Chloride 103.7 Carbon Dioxide 25 D Anion Gap 17 BUN 6 L Creatinine 0.7 D Total Bilirubin 0.40 AST 14 ALT 12 Alkaline Phosphatase 92 Objective Vital Signs - 12hr 04/26/18 04/26/18 04/26/18 04:34 07:12 11:12 Temperature 97.6 F 97.8 F 98.2 F Pulse Rate 74 69 Respiratory 17 18 20 Rate Blood Pressure 129/80 156/78 124/93 Blood Pressure [Right] O2 Sat by Pulse 97 99 Oximetry 04/26/18 12:00 Temperature 98.2 F Pulse Rate 79 Respiratory 20 Rate Blood Pressure Blood Pressure 124/93 [Right] O2 Sat by Pulse 100 Oximetry - Labs 04/25/18 04:32 04/25/18 Unknown
[2018-04-26] MEDS: MORPHINE IV PRN (15:36)
[2018-04-26] MEDS ORDERED: NORCO 5/325 PO PRN (18:04)
[2018-04-26] MEDS: TYLENOL PO PRN (18:19)
--- NOTE | 2018-04-26 20:09 | Gastroenterology Consultation ---
History of Present Illness - Reason for Consult Consult date: 04/26/18 abdominal pain Requesting physician: DOREEN TRAVIS - History of Present Illness Patient with multiple months of LLQ abdominal pain that ranges from mild to severe, intermittant, associated with RUQ pain, weight gain, fevers, constipation, cramping and sharp, worse with palpation better with medication. I was seeing as outpatient, eval as below: CT scan showed contracted GB and constipation. Colonoscopy 04/14/18 - small polyp, otherwise negative HIDA positive for acute cholecystitis so I spoke with her on the phone, she was feeling even worse and with fevers so I Sent in to ER She reports the pain meds make her loopy so doesn't want to take them Medications documented below, list reconciled and updated Past History Past Medical History: other (diverticulosis, anziety) Past Surgical History: hysterectomy, Other (tubal ligation) Social history: other (sometime alcohol use, no Tobacco) Family history: other (Crohn's, colon polyps, GERD, dyslipidemia, DM, CAD) Medications and Allergies Allergies Allergy/AdvReac Type Severity Reaction Status Date / Time iodine Allergy Swelling Verified 04/25/18 00:31 latex Allergy Swelling Verified 04/25/18 00:31 Penicillins Allergy Hives Verified 04/25/18 00:32 venom-honey bee AdvReac Severe Shortness Verified 04/25/18 15:58 [bee venom (honey bee)] of Breath Home Medications Medication Instructions Recorded Confirmed Last Taken Type Levothyroxine [Synthroid] 112 mcg PO QAM 04/24/18 04/24/18 Unknown History NIFEdipine [Nifedipine ER] 60 mg PO DAILY 04/24/18 04/24/18 Unknown History SUMAtriptan SUCCINATE [Imitrex] 100 mg PO Q2H 04/26/18 04/26/18 04/23/18 15:00 History 100 Active Meds: Active Medications Acetaminophen (Tylenol) 650 mg PO Q4H PRN PRN Reason: Pain MILD(1-3)/Fever >100.5/GODOY Last Admin: 04/26/18 18:19 Dose: 650 mg Documented by: Acetaminophen/Hydrocodone Bitart ([place] 5/325) 1 each PO Q4H PRN PRN Reason: Pain, Moderate (4-6) Enoxaparin Sodium (Lovenox) 40 mg SUB-Q QDAY@1000 REYMUNDO Last Admin: 04/26/18 09:19 Dose: 40 mg Documented by: Hydralazine HCl (Apresoline) 5 mg IV Q6H PRN PRN Reason: Hypertension Sodium Chloride (Nacl 0.45% 1000 Ml) 1,000 mls @ 75 mls/hr IV DIRECT [facility] Last Admin: 04/26/18 15:58 Dose: 75 mls/hr Documented by: Levofloxacin/Dextrose (Levaquin 500mg/100ml) 500 mg in 100 mls @ 100 mls/hr IV Q24HR [facility]; Protocol Last Admin: 04/26/18 09:20 Dose: 100 mls/hr Documented by: Levothyroxine Sodium (Synthroid) 112 mcg PO QAM@0600 [facility] Last Admin: 04/26/18 09:32 Dose: 112 mcg Documented by: Nifedipine (Procardia Xl) 60 mg PO QDAY [facility] Last Admin: 04/26/18 09:19 Dose: 60 mg Documented by: Ondansetron HCl (Zofran) 4 mg IV Q4H PRN PRN Reason: Nausea And Vomiting Last Admin: 04/26/18 12:29 Dose: 4 mg Documented by: Sodium Chloride (Sodium Chloride Flush Syringe 10 Ml) 10 ml IV BID [facility] Last Admin: 04/26/18 09:23 Dose: 10 ml Documented by: Sodium Chloride (Sodium Chloride Flush Syringe 10 Ml) 10 ml IV PRN PRN PRN Reason: LINE FLUSH Review of Systems - Review of Systems All systems: negative (10 systems reviewed and negative except as detailed above in HPI with addition of fatigue, malaise, fever, night sweats, bloating, constipation) Exam - Constitutional Vital Signs: Temp Pulse Resp BP Pulse Ox 98.0 F 93 H 20 112/70 99 04/26/18 15:23 04/26/18 15:23 04/26/18 18:19 04/26/18 15:23 04/26/18 15:23 General appearance: other (mildly uncomfortable) - EENT Eyes: EOM intact ENT: hearing intact - Neck Neck: supple - Respiratory Respiratory: bilateral: CTA - Cardiovascular Rhythm: regular - Gastrointestinal General gastrointestinal: Present: other (+BS, severe TTP LLQ and moderate TTP RUQ, palpation made patient nauseated) - Integumentary Integumentary: Present: clammy - Musculoskeletal Musculoskeletal: normal - Neurologic Neurological: alert and oriented x3, strength equal bilaterally - Psychiatric Psychiatric: appropriate mood/affect - Labs CBC & Chem 7: 04/25/18 04:32 04/25/18 Unknown Assessment and Plan - Patient Problems (1) Abdominal pain Current Visit: Yes Status: Acute Qualifiers: Abdominal location: generalized Qualified Code(s): R10.84 - Generalized abdominal pain (2) Acute cholecystitis Current Visit: Yes Status: Acute Plan to address problem: Given HIDA scan findings and patient's symptoms, biliary source is highest on the differential diagnosis and cholecystectomy is the next logical step for management of the patient's findings and symptoms. D/w Surgery. If the jerry does not relieve the patient's symptoms then consider EGD r/o gatsric source, though that is much lower on the differential diagnosis given the positive HIDA scan results. (3) Fever Current Visit: Yes Status: Acute Qualifiers: Fever type: unspecified Qualified Code(s): R50.9 - Fever, unspecified (4) Nausea & vomiting Current Visit: Yes Status: Acute Qualifiers: Vomiting type: unspecified Vomiting Intractability: intractable Qualified Code(s): R11.2 - Nausea with vomiting, unspecified
[2018-04-27] MEDS: TYLENOL PO PRN (04:35)
[2018-04-27] MEDS: NACL 0.45% 1000 ML 1,000 ML IV SCH (04:36)
[2018-04-27] MEDS: SYNTHROID PO SCH (05:57)
[2018-04-27] MEDS ORDERED: LEVAQUIN PO SCH (10:00)
[2018-04-27] MEDS: PROCARDIA XL PO SCH (10:36)
[2018-04-27] MEDS: LOVENOX SUB-Q SCH (10:36)
--- NOTE | 2018-04-27 11:44 | Gastroenterology Progress Note ---
<EILEEN ARIAS - Last Filed: 04/27/18 12:20> Assessment and Plan 1.abdominal pain 2.N/V -afebrile -WBC WNL -LFTs WNL -abd CT and u/s-unremarkable -HIDA scan results- concerning for cholecystitis -etiology-most likely 2/2 GB disease vs other -surgery following with lap jerry pending for today -continue supportive care -will consider EGD based on clinical course to r/o gastric source if symptoms persist s/o jerry -will follow at a distance Subjective Date of service: 04/27/18 Principal diagnosis: abdominal pain Interval history: Patient w/o acute distress. Reports continued abd pain. No N/V. Objective - Constitutional Vitals: Temp Pulse Resp BP Pulse Ox 97.8 F 87 16 120/83 100 04/27/18 08:00 04/27/18 08:00 04/27/18 08:00 04/27/18 08:00 04/27/18 08:00 General appearance: no acute distress - Respiratory Respiratory: bilateral: CTA - Cardiovascular Rhythm: regular Heart Sounds: Present: S1 & S2 - Gastrointestinal General gastrointestinal: Present: soft, tender (RUQ), non-distended, normal bowel sounds - Neurologic Neurological: alert and oriented x3 - Labs CBC & Chem 7: 04/25/18 04:32 04/25/18 Unknown <CHRISTOFER ORTIZ - Last Filed: 04/27/18 13:24> Assessment and Plan Agree with advanced practitioner exam, assessment, and plan with additions below: Patient very uncomfortable appearing on today's exam, she is going down for gabriele brittany now. Will follow up post-op, as long as she does well no GI follow up required. If does not improve then will consider EGD r/o gastric source, though that is unlikely given positive HIDA result. I completed [facility] paperwork for her today as well. - Patient Problems (1) Abdominal pain Current Visit: Yes Status: Acute Qualifiers: Abdominal location: generalized Qualified Code(s): R10.84 - Generalized abdominal pain (2) Acute cholecystitis Current Visit: Yes Status: Acute (3) Fever Current Visit: Yes Status: Acute Qualifiers: Fever type: unspecified Qualified Code(s): R50.9 - Fever, unspecified (4) Nausea & vomiting Current Visit: Yes Status: Acute Qualifiers: Vomiting type: unspecified Vomiting Intractability: intractable Qualified Code(s): R11.2 - Nausea with vomiting, unspecified Objective - Constitutional Vitals: Temp Pulse Resp BP Pulse Ox 97.7 F 71 16 116/82 84 04/27/18 11:29 04/27/18 11:29 04/27/18 11:29 04/27/18 11:29 04/27/18 11:29 - Labs CBC & Chem 7: 04/25/18 04:32 04/25/18 Unknown
--- NOTE | 2018-04-27 12:20 | Anesthesia Consultation ---
Anesthesia Consult and Med Hx Date of service: 04/27/18 - Airway ROM Head & Neck: Adequate Mental/Hyoid Distance: Adequate Mallampati Class: Class II Intubation Access Assessment: Probably Good - Pulmonary Exam CTA: Yes - Cardiac Exam Cardiac Exam: RRR - Pre-Operative Health Status ASA Pre-Surgery Classification: ASA2 Proposed Anesthetic Plan: General - Pulmonary Hx Smoking: No Hx Respiratory Symptoms: No Hx Sleep Apnea: No - Cardiovascular System Hx Hypertension: Yes Hx Heart Attack/AMI: No Hx Percutaneous Transluminal Coronary Angioplasty (PTCA): No - Central Nervous System Hx Seizures: No CVA: No - Gastrointestinal Hx Gastroesophageal Reflux Disease: No - Endocrine Hx Renal Disease: No Hx Liver Disease: No Hx Insulin Dependent Diabetes: No Hx Non-Insulin Dependent Diabetes: No Hx Hypothyroidism: Yes - Hematic Hx Anemia: Yes - Other Systems Hx Obesity: No - Additional Comments Anesthesia Medical History Comments: No hx anesthetic complications.
[2018-04-27] MEDS ORDERED: DILAUDID IV PRN (12:21)
[2018-04-27] MEDS ORDERED: MARCAINE 0.5% INFILTRATI ONE (12:22)
[2018-04-27] MEDS ORDERED: MARCAINE-EPI 0.5%-1:200,000 INFILTRATI ONE ×2 (12:22→14:32)
[2018-04-27] MEDS ORDERED: VERSED IV NR (13:00)
[2018-04-27] MEDS ORDERED: LACTATED RINGERS 1,000 ML IV SCH (13:00)
[2018-04-27] MEDS ORDERED: TRANSDERM-SCOP TD NR (13:00)
[2018-04-27] MEDS ORDERED: SUBLIMAZE ONE ×2 (13:33→14:28)
[2018-04-27] MEDS ORDERED: DIPRIVAN 10 MG/ML IV ONE (13:34)
[2018-04-27] MEDS ORDERED: XYLOCAINE MPF 2% ONE (13:36)
[2018-04-27] MEDS ORDERED: ZOFRAN ONE (13:37)
[2018-04-27] MEDS ORDERED: ZEMURON IV ONE (13:37)
[2018-04-27] MEDS ORDERED: DECADRON ONE (13:37)
[2018-04-27] MEDS ORDERED: VANCOMYCIN/NS 1 GM/250 ML 1 GM/250 ML BAG IV NR (13:39)
--- NOTE | 2018-04-27 13:48 | Anesthesia Day of Surgery ---
Anesthesia Day of Surgery - Day of Surgery Patient Examined: Yes Patient H&P Reviewed: Yes Patient is NPO: Yes
[2018-04-27] MEDS ORDERED: NACL 0.9% 100 ML ONE (14:09)
[2018-04-27] MEDS ORDERED: NEO SYNEPHRINE ONE (14:09)
--- NOTE | 2018-04-27 14:29 | Progress Note ---
Assessment and Plan Assessment and plan: Patient is a 52-year-old woman with a history of hypertension and hypothyroidism who presented to [facility] ED emergency room with complaints of abdominal pain since October. The pain right upper quadrant, sharp, constant, intensity 8/10, no radiation, associated with nausea and vomiting. She was admitted at [facility] and was diagnosed with diverticulitis, status post colonoscopy on April 14 which was negative for diverticulosis. Her CRP remain elevated, I had a scan was obtained yesterday which was concerning for cholecystitis. Her GI doctor sent her to the emergency room today for further evaluation, patient states she had a fever today. * CT abd/pelvis without contrast: IMPRESSION: No acute intra-abdominal or pelvic pathology is visualized on this noncontrast study. Moderate degree of residual stool. * US abd limited: Unremarkable study Acute cholecystitis suspected: Await GS evaluation, Placed on bowel rest, IV fluid, Hypertension; prn iv antihypertensive while npo Hypothyroidism; continue home med, follow up tsh Severe malnutrition, poa: treat the infection and then consult Banking Management Consulting Manager once diet starts History Interval history: Patient was seen and examined. Follow-up on current diagnosis acute cholecystitis. Overnight uneventful. Patient denies any chest pain, shortness breath, nausea/vomiting or severe headaches. Imaging, nursing note, chart, labs and old chart reviewed. Discussed with patient. Hospitalist Physical - Physical exam Narrative exam: Gen: WDWN, NAD, Awake, Alert, Orientated HEENT: NCAT, EOMI, PERRL, OP Clear Neck: supple, no adenopathy, no thyromegaly, no JVD CVS/Heart: RRR, normal S1S2, pulses present bilaterally Chest/Lungs: CTA B, Symmetrical chest expansion, good air entry bilaterally GI/Abdomen: soft, tenderness, good bowel sounds, no guarding or rebound /Bladder: no suprapubic tenderness, no CVA or paraspinal tenderness Extermity/Skin: no c/c/e, no obvious rash MSK: FROM x 4 Neuro: CN 2-12 grossly intact, no new focal deficits Psych: calm - Constitutional Vitals: Temp Pulse Resp BP Pulse Ox 98 F 79 20 139/92 98 04/27/18 12:35 04/27/18 12:35 04/27/18 12:35 04/27/18 12:35 04/27/18 12:35 Results - Labs CBC & Chem 7: 04/25/18 04:32 04/25/18 Unknown Labs: Laboratory Last Values WBC 5.1 K/mm3 (4.5-11.0) 04/25/18 04:32 RBC 3.89 M/mm3 (3.65-5.03) 04/25/18 04:32 Hgb 11.9 gm/dl (10.1-14.3) 04/25/18 04:32 Hct 34.4 % (30.3-42.9) 04/25/18 04:32 MCV 88 fl (79-97) 04/25/18 04:32 MCH 31 pg (28-32) 04/25/18 04:32 MCHC 35 % (30-34) H 04/25/18 04:32 RDW 13.5 % (13.2-15.2) 04/25/18 04:32 Plt Count 294 K/mm3 (140-440) 04/25/18 04:32 Lymph % (Auto) 50.8 % (13.4-35.0) H 04/25/18 04:32 Orange % (Auto) 7.6 % (0.0-7.3) H 04/25/18 04:32 Eos % (Auto) 1.2 % (0.0-4.3) 04/25/18 04:32 Baso % (Auto) 0.7 % (0.0-1.8) 04/25/18 04:32 Lymph # 2.6 K/mm3 (1.2-5.4) 04/25/18 04:32 Orange # 0.4 K/mm3 (0.0-0.8) 04/25/18 04:32 Eos # 0.1 K/mm3 (0.0-0.4) 04/25/18 04:32 Baso # 0.0 K/mm3 (0.0-0.1) 04/25/18 04:32 Seg Neutrophils % 39.7 % (40.0-70.0) L 04/25/18 04:32 Seg Neutrophils # 2.0 K/mm3 (1.8-7.7) 04/25/18 04:32 Sodium 142 mmol/L (137-145) 04/25/18 Unknown Potassium 3.6 mmol/L (3.6-5.0) D 04/25/18 Unknown Chloride 103.7 mmol/L (98-107) 04/25/18 Unknown Carbon Dioxide 25 mmol/L (22-30) D 04/25/18 Unknown Anion Gap 17 mmol/L 04/25/18 Unknown BUN 6 mg/dL (7-17) L 04/25/18 Unknown Creatinine 0.7 mg/dL (0.7-1.2) D 04/25/18 Unknown Estimated GFR > 60 ml/min 04/25/18 Unknown BUN/Creatinine Ratio 9 % 04/25/18 Unknown Glucose 105 mg/dL (65-100) H 04/25/18 Unknown Calcium 8.6 mg/dL (8.4-10.2) 04/25/18 Unknown Total Bilirubin 0.40 mg/dL (0.1-1.2) 04/25/18 Unknown AST 14 units/L (5-40) 04/25/18 Unknown ALT 12 units/L (7-56) 04/25/18 Unknown Alkaline Phosphatase 92 units/L (35-129) 04/25/18 Unknown Total Protein 6.8 g/dL (6.3-8.2) 04/25/18 Unknown Albumin 3.5 g/dL (3.9-5) L 04/25/18 Unknown Albumin/Globulin Ratio 1.1 % 04/25/18 Unknown Urine Color Yellow (Yellow) 04/24/18 23:26 Urine Turbidity Clear (Clear) 04/24/18 23:26 Urine pH 5.0 (5.0-7.0) 04/24/18 23:26 Ur Specific [place] 1.019 (1.003-1.030) 04/24/18 23:26 Urine Protein <15 mg/dl mg/dL (Negative) 04/24/18 23:26 Urine Glucose (UA) Neg mg/dL (Negative) 04/24/18 23:26 Urine Ketones Neg mg/dL (Negative) 04/24/18 23:26 Urine Blood Neg (Negative) 04/24/18 23:26 Urine Nitrite Neg (Negative) 04/24/18 23:26 Urine Bilirubin Neg (Negative) 04/24/18 23:26 Urine Urobilinogen < 2.0 mg/dL (<2.0) 04/24/18 23:26 Ur Leukocyte Esterase Neg (Negative) 04/24/18 23:26 Urine WBC (Auto) 4.0 /HPF (0.0-6.0) 04/24/18 23:26 Urine RBC (Auto) 1.0 /HPF (0.0-6.0) 04/24/18 23:26 U Epithel Cells (Auto) 2.0 /HPF (0-13.0) 04/24/18 23:26 Urine Bacteria (Auto) 1+ /HPF (Negative) 04/24/18 23:26 Hyaline Casts 4 /LPF 04/24/18 23:26 Urine Mucus Few /HPF 04/24/18 23:26
[2018-04-27] MEDS ORDERED: NACL 0.9% IR ONE (14:32)
[2018-04-27] MEDS ORDERED: MORPHINE IV PRN (14:39)
[2018-04-27] MEDS ORDERED: NORCO 5/325 PO PRN (14:40)
[2018-04-27] MEDS ORDERED: BREVIBLOC IV ONE (14:55)
[2018-04-27] MEDS ORDERED: ROBINUL ONE ×2 (15:04)
[2018-04-27] MEDS ORDERED: BLOXIVERZ ONE (15:04)
[2018-04-27] MEDS ORDERED: NORMODYNE IV PRN (15:06)
--- NOTE | 2018-04-27 15:06 | Operative Report ---
PREOPERATIVE DIAGNOSIS: Gallbladder disease. POSTOPERATIVE DIAGNOSIS: Gallbladder disease. PROCEDURE: Laparoscopic cholecystectomy. SURGEON: Marcus Sierra MD HEAT TREAT PULLER: Dr. Kwong. ANESTHESIA: General. ESTIMATED BLOOD LOSS: Minimal. DRAINAGE: None. COMPLICATIONS: None. DESCRIPTION OF PROCEDURE: The patient was taken to the operating room, prepped and draped in the usual sterile fashion. Veress needle was inserted and CO2 insufflation begun. A 5 mm trocar was then inserted and camera inserted. All other trocars were inserted under direct visualization. Attention was then focused to the right upper quadrant of the abdomen. A contracted scarred down intrahepatic gallbladder was noted. Some adhesions were noted between the infundibular region and the stomach and duodenum. All these adhesions were bluntly lysed. The gallbladder was then grasped at the fundus and infundibulum and retracted towards the right subphrenic space. Dissection was then carried out along Calot's triangle. The cystic duct and artery were delineated in their entire course. Both were then doubly clipped and transected. Hook electrocautery was used to dissect the gallbladder from the overlying liver bed. Prior to complete removal, the liver bed was inspected for bleeding and noted to be dry. The cystic duct and artery stumps were once again visualized. The clips were noted to be securely in place with no evidence of bleeding or bile leak. Gallbladder was then completely freed and brought out through the subxiphoid port. This area was inspected for bleeding and noted to be dry. Subxiphoid trocar was then gently reinserted. All other 5 mm ports were removed under direct visualization. No bleeding or oozing noted. Subxiphoid trocar was then used to expel the CO2 and the trocar removed. The fascia at this site was closed with a [id number] 0 Vicryl suture. The skin at all port sites was closed with subcuticular 4-0 Vicryl. A 0.5% Marcaine with epinephrine was infiltrated over the port site for postoperative pain relief. The patient tolerated the procedure well and left the OR in stable condition. JOB# [id number] [place]
[2018-04-27] MEDS: SUBLIMAZE IV PRN ×3 (15:20→16:10)
[2018-04-27] MEDS: NORCO PO PRN ×2 (19:29→23:58)
[2018-04-28] MEDS: SODIUM CHLORIDE FLUSH SYRINGE 10 ML IV SCH ×2 (00:03)
[2018-04-28 04:42] LABS: Basophils % (Auto) 0.4 % (0.0-1.8); Hematocrit 35.9 % (30.3-42.9); Hemoglobin 12.3 gm/dl (10.1-14.3); Lymphocytes # (Auto) 1.4 K/mm3 (1.2-5.4); Lymphocytes % (Auto) 18.6 % (13.4-35.0); Mean Corpuscular HGB Conc 34 % (30-34); Mean Corpuscular Volume 89 fl (79-97); Monocytes # (Auto) 0.4 K/mm3 (0.0-0.8); Monocytes % (Auto) 4.6 % (0.0-7.3); Platelet Count 338 K/mm3 (140-440); Red Blood Count 4.03 M/mm3 (3.65-5.03); Red Cell Distribution Width 13.3 % (13.2-15.2)
[2018-04-28 05:01] LABS: BUN/Creatinine Ratio 9; Blood Urea Nitrogen 6 mg/dL (7-17); Hemolysis Index 6
[2018-04-28 05:06] LABS: Alanine Aminotransferase 40 units/L (7-56); Albumin 3.7 g/dL (3.9-5); BUN/Creatinine Ratio 9; Blood Urea Nitrogen 6 mg/dL (7-17); Calcium 9.1 mg/dL (8.4-10.2); Hemolysis Index 8
[2018-04-28] MEDS: SYNTHROID PO SCH (06:26)
[2018-04-28] MEDS: NORCO PO PRN ×2 (06:29→13:49)
--- NOTE | 2018-04-28 10:54 | Gastroenterology Progress Note ---
<EILEEN ARIAS - Last Filed: 04/28/18 10:59> Assessment and Plan 1.abdominal pain 2.N/V -afebrile -WBC WNL -abd CT and u/s-unremarkable -HIDA scan results- concerning for cholecystitis -etiology-most likely 2/2 GB disease vs other -s/p lap jerry yesterday per surgery -clinically, patient is stable. Reports feeling much better this morning with prior abd pain now significantly improved with only mild incisional soreness present. No N/V. -no plan for EGD at this time -further management per surgery -continue supportive care -recommend f/u in clinic in ~2-3 weeks upon d/c -will sign off, please call if needed Subjective Date of service: 04/28/18 Principal diagnosis: abdominal pain Interval history: Patient sitting up in bed this am w/o distress. Reports feeling much better this morning with prior abd pain now significantly improved with only mild incisional soreness from s/p lap jerry yesterday. No N/V. Objective - Constitutional Vitals: Temp Pulse Resp BP Pulse Ox 97.9 F 83 17 143/90 97 04/28/18 07:47 04/28/18 07:47 04/28/18 07:29 04/28/18 07:47 04/28/18 06:33 General appearance: no acute distress - Respiratory Respiratory: bilateral: CTA - Cardiovascular Rhythm: regular Heart Sounds: Present: S1 & S2 - Gastrointestinal General gastrointestinal: Present: soft, tender (slight generalized TTP (incisional soreness)), normal bowel sounds - Neurologic Neurological: alert and oriented x3 - Labs CBC & Chem 7: 04/28/18 04:29 04/28/18 04:29 Labs: Laboratory Results - last 24 hr 04/28/18 04/28/18 04/28/18 04:29 04:29 04:29 WBC 7.6 RBC 4.03 Hgb 12.3 Hct 35.9 MCV 89 MCH 30 MCHC 34 RDW 13.3 Plt Count 338 Lymph % (Auto) 18.6 [place] % (Auto) 4.6 Eos % (Auto) 0.0 Baso % (Auto) 0.4 Lymph # 1.4 [place] # 0.4 Eos # 0.0 Baso # 0.0 Seg Neutrophils % 76.4 H Seg Neutrophils # 5.8 Sodium 138 139 Potassium 3.9 3.9 Chloride 101.2 102.1 Carbon Dioxide 24 24 Anion Gap 17 17 BUN 6 L 6 L Creatinine 0.7 0.7 Estimated GFR > 60 > 60 BUN/Creatinine Ratio 9 9 Glucose 115 H 115 H Calcium 9.0 9.1 Total Bilirubin 0.30 AST 49 H ALT 40 Alkaline Phosphatase 93 Total Protein 7.1 Albumin 3.7 L Albumin/Globulin Ratio 1.1 <CHRISTOFER ORTIZ - Last Filed: 04/28/18 13:02> Assessment and Plan Patient seen and examined, note reviewed, and I agree with the advanced practitioner's plan and assessment with the following additions: Patient is feeling much better, the pain that brought her in is gone, just some post-op abdominal pain. Abd soft. May discharge home per surgeon recommendations, I will sign off, patient may return to see me if needed. - Patient Problems (1) Abdominal pain Current Visit: Yes Status: Acute Qualifiers: Abdominal location: generalized Qualified Code(s): R10.84 - Generalized abdominal pain (2) Acute cholecystitis Current Visit: Yes Status: Acute (3) Fever Current Visit: Yes Status: Acute Qualifiers: Fever type: unspecified Qualified Code(s): R50.9 - Fever, unspecified (4) Nausea & vomiting Current Visit: Yes Status: Acute Qualifiers: Vomiting type: unspecified Vomiting Intractability: intractable Qualified Code(s): R11.2 - Nausea with vomiting, unspecified Objective - Constitutional Vitals: Temp Pulse Resp BP Pulse Ox 98.2 F 81 18 113/70 100 04/28/18 11:53 04/28/18 11:53 04/28/18 11:53 04/28/18 11:53 04/28/18 11:53 - Labs CBC & Chem 7: 04/28/18 04:29 04/28/18 04:29 Labs: Laboratory Results - last 24 hr 04/28/18 04/28/18 04/28/18 04:29 04:29 04:29 WBC 7.6 RBC 4.03 Hgb 12.3 Hct 35.9 MCV 89 MCH 30 MCHC 34 RDW 13.3 Plt Count 338 Lymph % (Auto) 18.6 [place] % (Auto) 4.6 Eos % (Auto) 0.0 Baso % (Auto) 0.4 Lymph # 1.4 [place] # 0.4 Eos # 0.0 Baso # 0.0 Seg Neutrophils % 76.4 H Seg Neutrophils # 5.8 Sodium 138 139 Potassium 3.9 3.9 Chloride 101.2 102.1 Carbon Dioxide 24 24 Anion Gap 17 17 BUN 6 L 6 L Creatinine 0.7 0.7 Estimated GFR > 60 > 60 BUN/Creatinine Ratio 9 9 Glucose 115 H 115 H Calcium 9.0 9.1 Total Bilirubin 0.30 AST 49 H ALT 40 Alkaline Phosphatase 93 Total Protein 7.1 Albumin 3.7 L Albumin/Globulin Ratio 1.1
[2018-04-28] MEDS: PROCARDIA XL PO SCH (11:39)
[2018-04-28 11:54] VITALS: BP 113/70
--- NOTE | 2018-04-28 12:01 | Progress Note ---
Assessment and Plan POD # 1 Pt feeling "so much better" + flatus Abd soft, non tender + BS stable LFT's - wnl begin low fat cl liq today may d/c from surg perspective if diet minnie advance to solid low fat diet at home in am rto Friday Selected Entries 04/28/18 11:53 Temperature 98.2 F Pulse Rate 81 Respiratory 18 Rate Blood Pressure 113/70 [Right] Laboratory Tests 04/28/18 04/28/18 04/28/18 04:29 04:29 04:29 WBC 7.6 Hgb 12.3 Hct 35.9 Sodium 138 Potassium 3.9 Chloride 101.2 Total Bilirubin 0.30 AST 49 H ALT 40 Alkaline Phosphatase 93 Objective Vital Signs - 12hr 04/28/18 04/28/18 04/28/18 00:58 06:29 06:33 Temperature 97.5 F L Pulse Rate 76 Respiratory 16 17 18 Rate Blood Pressure 143/85 Blood Pressure [Right] O2 Sat by Pulse 97 Oximetry 04/28/18 04/28/18 04/28/18 06:39 07:17 07:29 Temperature 98 F 97.9 F Pulse Rate Respiratory 18 17 Rate Blood Pressure 143/90 Blood Pressure [Right] O2 Sat by Pulse Oximetry 04/28/18 04/28/18 07:47 11:53 Temperature 97.9 F 98.2 F Pulse Rate 83 81 Respiratory 18 Rate Blood Pressure Blood Pressure 143/90 113/70 [Right] O2 Sat by Pulse 100 Oximetry - Labs 04/28/18 04:29 04/28/18 04:29 Diabetes panel 04/28/18 04/28/18 Range/Units 04:29 04:29 Sodium 138 139 (137-145) mmol/L Potassium 3.9 3.9 (3.6-5.0) mmol/L Chloride 101.2 102.1 (98-107) mmol/L Carbon Dioxide 24 24 (22-30) mmol/L BUN 6 L 6 L (7-17) mg/dL Creatinine 0.7 0.7 (0.7-1.2) mg/dL Glucose 115 H 115 H (65-100) mg/dL Calcium 9.0 9.1 (8.4-10.2) mg/dL AST 49 H (5-40) units/L ALT 40 (7-56) units/L Alkaline Phosphatase 93 (35-129) units/L Total Protein 7.1 (6.3-8.2) g/dL Albumin 3.7 L (3.9-5) g/dL Calcium panel 04/28/18 04/28/18 Range/Units 04:29 04:29 Calcium 9.0 9.1 (8.4-10.2) mg/dL Albumin 3.7 L (3.9-5) g/dL Pituitary panel 04/28/18 04/28/18 Range/Units 04:29 04:29 Sodium 138 139 (137-145) mmol/L Potassium 3.9 3.9 (3.6-5.0) mmol/L Chloride 101.2 102.1 (98-107) mmol/L Carbon Dioxide 24 24 (22-30) mmol/L BUN 6 L 6 L (7-17) mg/dL Creatinine 0.7 0.7 (0.7-1.2) mg/dL Glucose 115 H 115 H (65-100) mg/dL Calcium 9.0 9.1 (8.4-10.2) mg/dL Adrenal panel 04/28/18 04/28/18 Range/Units 04:29 04:29 Sodium 138 139 (137-145) mmol/L Potassium 3.9 3.9 (3.6-5.0) mmol/L Chloride 101.2 102.1 (98-107) mmol/L Carbon Dioxide 24 24 (22-30) mmol/L BUN 6 L 6 L (7-17) mg/dL Creatinine 0.7 0.7 (0.7-1.2) mg/dL Glucose 115 H 115 H (65-100) mg/dL Calcium 9.0 9.1 (8.4-10.2) mg/dL Total Bilirubin 0.30 (0.1-1.2) mg/dL AST 49 H (5-40) units/L ALT 40 (7-56) units/L Alkaline Phosphatase 93 (35-129) units/L Total Protein 7.1 (6.3-8.2) g/dL Albumin 3.7 L (3.9-5) g/dL
--- NOTE | 2018-04-28 13:08 | Discharge Summary ---
Providers - Providers Date of Admission: 04/24/18 23:22 Date of discharge: 04/28/18 Attending physician: GENE ANDERSON 04/24/18 22:26 Consult to Physician [CONS] Routine Comment: Consulting Provider: DOREEN TRAVIS Physician Instructions: Reason For Exam: gallbladder pain. acute jerry 04/25/18 12:17 Consult to Physician [CONS] Routine Comment: Consulting Provider: SAIRA CAMACHO Physician Instructions: Reason For Exam: abd pain. pt known to group & referred Primary care physician: CHARISSE KHAN Hospitalization Condition: Stable Hospital course: Patient is a 52-year-old woman with a history of hypertension and hypothyroidism who presented to [facility] ED emergency room with complaints of abdominal pain since October. The pain right upper quadrant, sharp, constant, intensity 8/10, no radiation, associated with nausea and vomiting. She was admitted at [facility] and was diagnosed with diverticulitis, status post colonoscopy on April 14 which was negative for diverticulosis. Her CRP remain elevated, I had a scan was obtained yesterday which was concerning for cholecystitis. Her GI doctor sent her to the emergency room today for further evaluation, patient states she had a fever today. * CT abd/pelvis without contrast: IMPRESSION: No acute intra-abdominal or pelvic pathology is visualized on this noncontrast study. Moderate degree of residual stool. * US abd limited: Unremarkable study Acute cholecystitis s/p lap cholecystectomy Hypertension; prn iv antihypertensive while npo Hypothyroidism; continue home med, follow up tsh Severe malnutrition, poa: treat the infection and then consult Front Clerk once diet starts Disposition: -01 TO HOME OR SELFCARE Time spent for discharge: 34 minutes Core Measure Documentation - Palliative Care Palliative Care/ Comfort Measures: Not Applicable - Core Measures Any of the following diagnoses?: none - VTE Discharge Requirements Deep Vein Thrombosis/Pulmonary Embolism Present on Admission: No Has pt received <5 days of overlap therapy or INR<2.0: No Anticoagulant overlap therapy prescribed at discharge: No Contraindication No Overlap Therapy order at DC: Not Indicated Exam - Physical Exam Narrative exam: Gen: WDWN, NAD, Awake, Alert, Orientated HEENT: NCAT, EOMI, PERRL, OP Clear Neck: supple, no adenopathy, no thyromegaly, no JVD CVS/Heart: RRR, normal S1S2, pulses present bilaterally Chest/Lungs: CTA B, Symmetrical chest expansion, good air entry bilaterally GI/Abdomen: soft, tenderness, good bowel sounds, no guarding or rebound /Bladder: no suprapubic tenderness, no CVA or paraspinal tenderness Extermity/Skin: no c/c/e, no obvious rash MSK: FROM x 4 Neuro: CN 2-12 grossly intact, no new focal deficits Psych: calm - Constitutional Vitals: Temp Pulse Resp BP Pulse Ox 98.2 F 81 18 113/70 100 04/28/18 11:53 04/28/18 11:53 04/28/18 11:53 04/28/18 11:53 04/28/18 11:53 Plan Activity: other (no strenous activity unless cleared by Surgeon) Diet: low salt Follow up with: CHARISSE KHAN MD [Primary Care Provider] - 3-5 Days DOREEN TRAVIS MD [Staff Physician] - 7 Days SAIRA CAMACHO MD [Staff Physician] - 10 Days Prescriptions: HYDROcodone/APAP 7.5-325 [[place]] 7.5 mg PO Q4HR #7 oral.liqd Naproxen Sodium [Aleve TAB] 220 mg PO Q8H PRN #20 tablet PRN Reason: Pain, Mild (1-3)
== END 2018-04-28 15:00 | disposition home or self-care (01) | DRG 417 ==
LOC: ED 18:04 → 3B-SURG 23:22
PROVIDERS: ADMIT Internal Medicine; ATTEND Internal Medicine
PROC: 0FT44ZZ Resection of Gallbladder, Percutaneous Endoscopic Approach (ICD-10-PCS; principal; 2018-04-27)
DX: K81.0 Acute cholecystitis (principal); E43 Unspecified severe protein-calorie malnutrition; I10 Essential (primary) hypertension; E89.0 Postprocedural hypothyroidism; F41.9 Anxiety disorder, unspecified; K57.90 Diverticulosis of intestine, part unspecified, without perforation or abscess without bleeding; Z90.710 Acquired absence of both cervix and uterus; Z72.89 Other problems related to lifestyle; Z68.27 Body mass index [BMI] 27.0-27.9, adult; Z82.49 Family history of ischemic heart disease and other diseases of the circulatory system; Z88.0 Allergy status to penicillin; Z91.030 Bee allergy status; Z91.041 Radiographic dye allergy status; Z91.040 Latex allergy status; Z79.899 Other long term (current) drug therapy; Z98.51 Tubal ligation status; Z83.3 Family history of diabetes mellitus
CPT/HCPCS: 36415; 74176; 76705; 80048; 80053; 81001; 85025; 85027; 88304; 96365; 96375; 99291; G0378; J1100; J1650; J1956; J2250; J2270; J2370; J2405; J2704; J2710; J3010; J3370; J7030; J7120

== ENCOUNTER 2020-05-02 15:33 | Emergency (ER) | payer OTHER ==
[2020-05-02 15:45] VITALS: BP 135/83
== END 2020-05-02 16:08 | disposition left against medical advice (07) ==
LOC: ED 15:33
DX: R07.89 Other chest pain (principal); R06.02 Shortness of breath; Z53.21 Procedure and treatment not carried out due to patient leaving prior to being seen by health care provider
CPT/HCPCS: 93005